=== PATIENT | male | born 1985 | race Asian ===

== ENCOUNTER 2021-04-08 20:19 | Emergency (ER) | payer OTHER ==
[~2021-04-08] VITALS: Ht 188 cm; Wt 111.1 kg
[2021-04-08 21:45] VITALS: BP 140/88; TEMP 98.2
== END 2021-04-08 21:45 | disposition home or self-care (01) ==
LOC: ED 20:19
DX: S93.492A Sprain of other ligament of left ankle, initial encounter (principal); W17.89XA Other fall from one level to another, initial encounter; X50.1XXA Overexertion from prolonged static or awkward postures, initial encounter; Y92.89 Other specified places as the place of occurrence of the external cause
CPT/HCPCS: 99283

== ENCOUNTER 2022-11-16 12:22 | Outpatient (CLI) | payer OTHER | END 2022-11-16 18:58 | disposition home or self-care (01) | LOC: US 12:22 | PROVIDERS: ATTEND Nurse Practitioner Family | DX: M79.604 Pain in right leg (principal) ==